=== PATIENT | male | born 1965 | race Caucasian/White ===

== ENCOUNTER → 2016-11-27 | Outpatient (CLI) | payer OTHER | LOC: MW.MRI 10:11 | PROVIDERS: ATTEND Neurological Surgery | DX: M54.2 Cervicalgia (principal); Z53.9 Procedure and treatment not carried out, unspecified reason ==

== ENCOUNTER → 2016-12-02 | Outpatient (CLI) | payer OTHER ==
--- NOTE | 2016-12-03 14:43 | MR ---
EXAM DATE: 12/02/16 PATIENT'S AGE: 51 Patient: COREY TAYLOR Facility: [place], [place] Site . Site : 1965 Study: MRI Spine Cervical [id number]/8/2017 7:07:37 PM Ordering Physician: Buzz Schultz Final Report: INDICATION: A 51-year-old male. Neck pain with right arm radiation to the elbow and left arm radiation to the 3rd, 4th and 5th digits. TECHNIQUE: T1-T2 and STIR sagittal images with multilevel T1 and T2 axial acquisitions. FINDINGS: There is a minor cervical kyphosis. Prevertebral tissues are normal. Cerebellar tonsils are normally situated. There is no pathologic signal within the spinal cord. C2-3 and C3-4: Normal. C4-5: Small posterior central protrusion indents the spinal cord. Foramina are normally patent. C5-6: Disc bulge and spurring. Marked right and moderate left foraminal uncinate spurring. Central canal is adequately patent. C6-7: Marked left foraminal uncinate spurring. Central canal and right neural foramen are adequately patent. C7-T1 and T3-4: No central or foraminal narrowing. IMPRESSION: 1. Marked left C6-7, marked right C5-6 and moderate left C5-6 foraminal stenosis by uncinate spurring. 2. Posterior central protrusion at C4-5 indents the spinal cord without impingement. Protrusion spares the foramina. Dictated by Edwar Mooney MD @ 12/03/2016 8:43:43 AM Dictated by: Edwar Mooney MD @ 12/03/2016 08:44:04 (Electronic Signature) Report Signed by Proxy and Original Signed Document filed in the Medical Record. [facility]
== END ==
LOC: MW.MRI 17:59
PROVIDERS: ATTEND Neurological Surgery
DX: M54.2 Cervicalgia (principal); M48.02 Spinal stenosis, cervical region; M50.21 Other cervical disc displacement, high cervical region
CPT/HCPCS: 72141; 72141-26